=== PATIENT | female | born 1980 | race Caucasian/White ===

== ENCOUNTER 2023-11-15 11:27 | Emergency (ER) | payer OTHER, SELFPAY ==
--- NOTE | 2023-11-15 11:28 | XRR_ITS ---
PROCEDURE INFORMATION: Exam: XR Left Shoulder Exam date and time: 11/15/2023 11:43 AM Age: 43 years old Clinical indication: Injury or trauma; Fall; Other: Lt shoulder pain; Additional info: Lt shoulder pain post backward fall TECHNIQUE: Imaging protocol: Radiologic exam of the left shoulder. Views: 2 or more views. COMPARISON: No relevant prior studies available. FINDINGS: Bones/joints: No acute fracture or dislocation evident. No peritendinous calcification demonstrated. No widening of the AC joint space. Soft tissues: No acute soft tissue abnormality identified XR/XR shoulder LT min 2V* [id number] IMPRESSION: No acute fracture identified.
[2023-11-15 11:33] VITALS: BP 132/91; PULSE 82; RESP 17; TEMP 36.7; O2SAT 100; BMI 27.1
--- NOTE | 2023-11-15 12:04 | ED_ITS ---
HPI - Extremity Problem General: Chief complaint: Extremity Injury, Upper Stated complaint: fall right shoulder injury Time Seen by Provider: 11/15/23 11:29 Source: patient Mode of arrival: ambulatory Limitations: no limitations History of Present Illness: 43-year-old female states that she last night she had tripped and fell she states she went to try to catch her hand with her left arm and has had left shoulder pain since then. States that pain is worse with movement of her left arm has improved with rest rates the pain a 4 out of 10 she denies any other injuries denies any her head denies any neck pain. Associated symptoms: Deny chest pain, fever(s) or rash Review of Systems Const: Denies: fever(s), chills, body aches or change in appetite ENMT: Denies: throat pain or dental pain Card: Denies: chest pain Resp: Denies: dyspnea GI: Denies: abdominal pain, nausea, vomiting or diarrhea Musc: Reports: extremity pain; Denies: neck pain or back pain Skin/Breast: Denies: rash Neuro: Denies: headache(s) Physical Exam Const: COMMON NORMALS: no acute distress, patient oriented x3 and healthy appearing HENMT: COMMON NORMALS: normocephalic and atraumatic HEAD & SCALP: normocephalic and atraumatic Neck/C-Spine: COMMON NORMALS: full ROM and supple Chest: COMMONS NORMALS: normal inspection of the chest Resp: COMMON NORMALS: normal respiratory effort Extremity: COMMON NORMALS: full ROM NARRATIVE EXTREMITY EXAM: Some slight tenderness over left lateral shoulder no obvious deformity distal pulses intact pain with range of motion. Neuro: COMMON NORMALS: patient oriented x3 and moves all extremities Psych: COMMON NORMALS: mental status grossly normal Skin: COMMON NORMALS: no rashes or lesions noted and no wounds GENERAL SKIN EXAM: no rashes or lesions noted Course Vital Signs: Vital signs: Vital Signs Temperature 98.0 F 11/15/23 11:33 Pulse Rate 82 11/15/23 11:33 Respiratory Rate 17 11/15/23 11:33 Blood Pressure 132/91 11/15/23 11:33 Pulse Oximetry 100 11/15/23 11:33 Oxygen Delivery Me thod Room Air 11/15/23 11:33 MDM - Extremity (Nontraumatic) Medical Decision Making Patient presents here with left shoulder pain from a fall likely strain x-ray shows no acute fractures patient stable for discharge follow-up orthopedics return if worsening. Medical Records I reviewed the patient's medical records. XR interpretation done by ED provider, pending radiology final review ED provider radiology interpretation(s): xr l shoulder no acute findings Discharge Plan Discharge Patient Disposition: Home Clinical Impression: Left shoulder strain Qualifiers: Encounter type: initial encounter Qualified Code(s): S46.912A - Strain of unspecified muscle, fascia and tendon at shoulder and upper arm level, left arm, initial encounter Condition: Stable Prescriptions: New Naprosyn 500 mg tablet 500 mg PO BID PRN (Reason: pain) Qty: 20 0RF Discharge Orders: Discharge ED (Routine); Ordered 11/15/23 Ordered By: Karl Chicas Referrals: Sanchez Gutierrez DO [Physician] - 1-3 days Discharge Diet: Advance as tolerated Discharge Activity: Resume usual activity Patient Instructions: Shoulder Sprain (ED) Coding Level of Care Code ED [employer] for [facility] Rene
[2023-11-15 12:12] VITALS: BP 115/78; PULSE 74; O2SAT 100
--- NOTE | 2023-11-18 07:22 | DCPLANNER ---
Message sent to Ortho for follow up on Left shoulder sprain
== END 2023-11-15 12:14 | disposition home or self-care (01) ==
PROVIDERS: Emergency Provider Emergency Medicine
DX: S46.912A Strain of unspecified muscle, fascia and tendon at shoulder and upper arm level, left arm, initial encounter (principal); W01.0XXA Fall on same level from slipping, tripping and stumbling without subsequent striking against object, initial encounter
CPT/HCPCS: 73030; 99283